=== PATIENT | male | born 1990 | race Caucasian/White ===

== ENCOUNTER 2017-08-05 09:49 | Emergency (ER) | payer SELFPAY ==
[2017-08-05] MEDS ORDERED: Adacel (T-DAP) 0.5 ML VIAL ONE (10:31)
[2017-08-05] MEDS ORDERED: Lidocaine 1% (PF) 30 ML VIAL ONE (10:34)
[2017-08-05] MEDS ORDERED: Lidocaine 1% w/Epinephrine 1:100K 20 ML VIAL ONE (10:46)
[2017-08-05] MEDS ORDERED: Bacitracin Zinc 1 Packet ONE (12:14)
== END 2017-08-05 12:10 | disposition home or self-care (01) ==
LOC: ERS 09:49
DX: S61.210A Laceration without foreign body of right index finger without damage to nail, initial encounter (principal); W31.2XXA Contact with powered woodworking and forming machines, initial encounter
CPT/HCPCS: 12001; 90471; 90715; J2001